=== PATIENT | male | born 1970 | race Two or more races ===

== ENCOUNTER 2021-12-29 20:51 | Emergency (ER) | payer OTHER ==
[~2021-12-29] VITALS: Ht 167.6 cm; Wt 93.0 kg
[2021-12-29 21:05] VITALS: BP 117/74
--- NOTE | 2021-12-29 21:17 | NUR ---
Patient ambulated to bed 11.
--- NOTE | 2021-12-29 21:28 | NUR ---
51 Y/O MALE BIBS, C/O ABD PAIN SINCE YESTERDAY. PATIENT PRESENTS TO ED WITH DIFFUSE ABD PAIN AND DIARRHEA WITH NO N/V. PT STATES HE HAS SEEN HIS DOCTOR TODAY AND WAS GIVEN AN ABX FOR POSSIBLE INFECTION. DENIES N/V; SKIN IS PINK/WARM/DRY; AAOX4 WITH EVEN AND STEADY GAIT; LUNGS CLEAR BL; HR EVEN AND REGULAR; PT DENIES ANY FEVER, CP, SOB, OR COUGH AT THIS TIME; PATIENT STATES 9/10 CONSTANT PAIN; VSS; PATIENT POSITIONED FOR COMFORT; HOB ELEVATED; BEDRAILS UP X1; BED DOWN. ER MD MADE AWARE OF PT STATUS. PT IS HNUGRY BUT UNABLE TO EAT BECAUSE OF THE PAIN. DENIES HX NKA MED: SIMETHICONE, OMEPRAZOLE
--- NOTE | 2021-12-29 22:21 | NUR ---
JAMEEL COLVIN AT BEDSIDE EXAMINING PT.
[2021-12-29] MEDS ORDERED: NACL 0.9% 2,000 ML IV ONE (22:40)
[2021-12-29] MEDS ORDERED: ONDANSETRON 4 MG/2 ML VIAL IVP ONE (22:40)
[2021-12-29] MEDS ORDERED: PIPERACILLIN/TAZOBACTAM 3.375 GM in DEXTROSE 5% 50 ML IV ONE (22:40)
[2021-12-29] MEDS ORDERED: NACL 0.9% 1,000 ML IV ONE (22:40)
[2021-12-29] MEDS ORDERED: MORPHINE SULFATE 2 MG/ML SYR IVP ONE (22:40)
--- NOTE | 2021-12-29 22:47 | NUR ---
FLIGHT TEST MECHANIC AT BEDSIDE
[2021-12-29] MEDS ORDERED: PIPERACILLIN/TAZOBACTAM 3.375 GM VIAL IV ONE (22:59)
[2021-12-29 23:04] LABS: HEMATOCRIT 40.2 % (36-52); HEMOGLOBIN 13.6 g/dL (12.0-18.0); MEAN CORPUSCULAR HEMOGLOBIN 30 pg (27-31); MEAN CORPUSCULAR HGB CONC 34 g/dL (33-37); MEAN CORPUSCULAR VOLUME 89.2 fL (80-94); PLATELET COUNT (AUTO) 179 K/uL (140-450); RED CELL DISTRIBUTION WIDTH 13.6 % (11.6-13.7); WHITE BLOOD COUNT (AUTO) 5.6 K/uL (4.8-10.8)
[2021-12-29 23:06] LABS: APPEARANCE,URINE CLEAR (CLEAR); BILIRUBIN,URINE NEGATIVE (NEGATIVE); BLOOD, URINE 1+ (NEGATIVE); COLOR,URINE YELLOW (YELLOW); LEUKOCYTE ESTERASE ,URINE NEGATIVE (NEGATIVE); NITRITE, URINE NEGATIVE (NEGATIVE); UGLUCOSE NEGATIVE (NEGATIVE)
[2021-12-29 23:33] LABS: LYMPHOCYTES % (MANUAL) 9 % (20-46); MONOCYTES % (MANUAL) 3 % (5-12)
[2021-12-29 23:35] LABS: ALBUMIN 3.4 g/dL (3.4-5.0); CARBON DIOXIDE 23.4 mmol/L (21-32); CREATININE 0.8 mg/dL (0.6-1.3); POTASSIUM 3.4 mmol/L (3.5-5.1); TOTAL BILIRUBIN 0.8 mg/dL (0.0-1.0)
[2021-12-29 23:37] LABS: RBC,URINE 0-5 /HPF (0-5); WBC,URINE 0-5 /HPF (0-5)
[2021-12-29] MEDS ORDERED: ACETAMINOPHEN EXTRA STRENGTH 500 MG TAB PO ONE (23:55)
[2021-12-29] MEDS ORDERED: PANTOPRAZOLE 40 MG INJ VIAL IVP ONE (23:55)
[2021-12-29] MEDS ORDERED: IBUPROFEN 800 MG TAB PO ONE (23:55)
--- NOTE | 2021-12-30 00:14 | NUR ---
LARGER IV PLACED FOR CT CONTRAST AND CONSENT SIGNED.
--- NOTE | 2021-12-30 00:40 | NUR ---
PT RETURNED FROM CT
[2021-12-30] MEDS ORDERED: IBUPROFEN 800 MG TAB ONE (01:16)
[2021-12-30] MEDS ORDERED: PANTOPRAZOLE 40 MG INJ VIAL ONE (01:16)
[2021-12-30] MEDS ORDERED: ACETAMINOPHEN EXTRA STRENGTH 500 MG TAB ONE (01:17)
[2021-12-30] MEDS ORDERED: AMOX-999 PO (02:23)
[2021-12-30] MEDS ORDERED: HYDR-5080 PO (02:23)
[2021-12-30] MEDS ORDERED: ONDA-188 SL (02:23)
[2021-12-30 02:41] VITALS: BP 107/72
--- NOTE | 2021-12-30 02:42 | NUR ---
Patient discharged with v/s stable. Written and verbal after care instructions given and explained. Patient alert, oriented and verbalized understanding of instructions. Ambulatory with steady gait. All questions addressed prior to discharge. ID band removed. Patient advised to follow up with PMD. Rx of AUGMENTIN(500-125), NORCO (7.5-325), AND ZOFRAN given. Patient educated on indication of medication including possible reaction and side effects. Opportunity to ask questions provided and answered. VSS, A/OX4, AMBULATORTY, UNLABORED BREATHING, AND CALM DEMEANOR.
--- NOTE | 2022-01-01 14:32 | NUR ---
LATE ENTRY, 0.9% NS IV FLUIDS DISCONTINUED AT 0136 ON 12/30/21.
== END 2021-12-30 02:41 | disposition home or self-care (01) ==
LOC: MED 20:51
DX: K52.9 Noninfective gastroenteritis and colitis, unspecified (principal); E87.6 Hypokalemia; E87.1 Hypo-osmolality and hyponatremia; Z79.899 Other long term (current) drug therapy; Z79.891 Long term (current) use of opiate analgesic; Z79.2 Long term (current) use of antibiotics
CPT/HCPCS: 36415; 74177; 80053; 81001; 83605; 83690; 85025; 87040; 96365; 96375; 99285; C9113; J2270; J2405; J2543; J7030; Q9967; 96374